=== PATIENT | male | born 1955 | race Two or more races ===

== ENCOUNTER 2024-08-21 05:20 | Emergency (ER) | payer OTHER ==
[~2024-08-21] VITALS: Ht 177.8 cm; Wt 95.3 kg
[2024-08-21 06:19] VITALS: BP 146/89; RESP 16; TEMP 98.9; O2SAT 100
[2024-08-21 06:40] VITALS: PULSE 85
--- NOTE | 2024-08-21 06:40 | ED.PDOC ---
HPI Comments A 68 YEAR OLD MALE PRESENTS TO THE ED WITH COMPLAINT OF LEFT ELBOW LACERATION STATUS POST FALL. PATIENT STATES HE HAS A HISTORY OF DIABETES AND TAKES INSULIN AND WHEN HE CHECKED HIS BLOOD SUGAR EARLIER THIS MORNING IT APPEARED TO BE IN THE 60S. PATIENT REPORTS HE FELT LIGHTHEADED WHILE HE WAS GETTING FOOD FOR HIS DOG, A RESULT OF HIS BLOOD SUGAR BEING LOW, WHICH THEN CAUSED HIM TO FALL. PATIENT REPORTS HE SUSTAINED A LACERATION ON HIS LEFT ELBOW A RESULT OF THIS FALL. BLEEDING IS CONTROLLED AT THIS TIME. PATIENT DENIES HEAD INJURY, NECK INJURY, LOC, FEVER, CHILLS, SHORTNESS OF BREATH, CHEST PAIN, ABDOMINAL PAIN, NAUSEA, VOMITING, HEADACHE, OR OTHER COMPLAINTS. NO OTHER SYMPTOMS OR MODIFYING FACTORS AT THIS TIME. PATIENT IS ALERT, ORIENTED X 4, AND HAS STEADY GAIT. Chief Complaint: Laceration Time Seen by MD: 06:12 Primary Care Provider: Dr. Nazario Reviewed Notes: Nurses Notes, Medications, Allergies Allergies: Coded Allergies: NO KNOWN ALLERGIES (Unverified , 08/21/24) Home Meds Active Scripts Cephalexin Monohydrate (Cephalexin) 500 Mg Cap, 1 CAP PO QID, #32 CAP Prov:CARLEE RICKS 08/21/24 Information Source: Patient Mode of Arrival: Ambulatory Severity: Moderate Severity of Laceration: Controlled Bleeding Complexity: Simple Timing: Hours Prehospital treatment: None Laceration Location: Other (LEFT ELBOW) Mechanism: Fall Last Tetanus: Unknown Laceration Length (cm): 6 Skin Type: Linear Depth of Injury: Skin, SQ Tendon Injury: 0% Capillary Refill: < 3 seconds Tender: Mild Discharge: None Erythema: None Associated Signs and Symptoms: None Past Medical History PAST MEDICAL HISTORY: DM, HTN Surgical History: Denies all surgeries Family History Family History: Reviewed,noncontributory to illness Social History Smoker: Non-Smoker Alcohol: Denies ETOH Use Drugs: Denies Drug Use Lives In: Home Constitutional: denies: chills, diaphoresis, fatigue, fever, malaise, sweats, weakness, others EENTM: denies: blurred vision, double vision, ear bleeding, ear discharge, ear drainage, ear pain, ear ringing, eye pain, eye redness, hearing loss, mouth pain, mouth swelling, nasal discharge, nose bleeding, nose congestion, nose pain, photophobia, tearing, throat pain, throat swelling, voice changes, others Respiratory: denies: cough, hemoptysis, orthopnea, SOB at rest, shortness of breath, SOB with excertion, stridor, wheezing, others Cardiovascular: denies: chest pain, dizzy spells, diaphoresis, Dyspnea on exertion, edema, irregular heart beat, left arm pain, lightheadedness, palpitations, PND, syncope, others Gastrointestinal: denies: abdomen distended, abdominal pain, blood streaked bowels, constipated, diarrhea, dysphagia, difficulty swallowing, hematemesis, melena, nausea, poor appetite, poor fluid intake, rectal bleeding, rectal pain, vomiting, others Genitourinary: denies: burning, dysuria, flank pain, frequency, hematuria, incontinence, penile discharge, penile sore, pain, testicle pain, testicle swelling, urgency, others Neurological: reports: dizziness; denies: fainting, headache, left sided numbness, left sided weakness, numbness, paresthesia, pre-existing deficit, right sided numbness, right sided weakness, seizure, speech problems, tingling, tremors, weakness, others Musculoskeletal: denies: back pain, gout, joint pain, joint swelling, muscle pain, muscle stiffness, neck pain, others Integumetry: reports: laceration (LACERATION OF LEFT ELBOW); denies: bruises, change in color, change in hair/nails, dryness, lesions, lumps, rash, wounds, others Allergic/Immunocompromised: denies: Difficulty Healing, Frequent Infections, Hives, Itching, others Hematologic/Lymphatic: denies: anemia, blood clots, easy bleeding, easy bruising, swollen glands, others Endocrine: denies: excessive hunger, excessive sweating, excessive thirst, excessive urination, flushing, intolerance to cold, intolerance to heat, unexplained weight gain, unexplained weight loss, others Psychiatric: denies: anxiety, bipolar disorder, depression, hopeless, panic disorder, schizophrenia, sleepless, suicidal, others All Other Systems: Reviewed and Negative Physical Exam General Appearance: No Apparent Distress, Normal HEENT: Normal ENT Inspection, PERRL/EOMI, Pharynx Normal, TMs Normal Neck: Full Range of Motion, Non-Tender, Normal, Normal Inspection Respiratory: Chest Non-Tender, Lungs Clear, No Accessory Muscle Use, No Respiratory Distress, Normal Breath Sounds Cardiovascular: No Edema, No JVD, No Murmur, No Gallop, Normal Peripheral Pulses, Regular Rate/Rhythm Breast Exam: Deferred Gastrointestinal: No Organomegaly, Non Tender, No Pulsatile Mass, Normal Bowel Sounds, Soft Genitalia: Deferred Pelvic: Deferred Rectal: Deferred Extremities: No calf tenderness, Normal capillary refill, Normal range of motion, No pedal edema, Tender (WITH LACERATION ON LEFT POSTERIOR ELBOW, NO BONY TENDERNESS, SWELLING AND DEFORMITY. NORMAL ROM. ) Musculoskeletal : Apperance: Normal Neurologic: Alert, offshoring manager II-XII nml as Tested, No Motor Deficits, Normal Affect, Normal Mood, No Sensory Deficits Cerebellar Function: Normal Reflexes: Normal Skin: Dry, Lacerations (6CM LACERATION ON LEFT POSTERIOR ELBOW, NO BLEEDING, SWELLING, NO FB, NEUROVASCULAR INTACT. ), Normal Color, Warm Peripheral Pulses: 2+ carotid (R), 2+ carotid (L), 2+ Radial (R), 2+ Radial (L) Lymphatic: No Adenopathy Was a procedure done? Was a procedure done?: Yes Sedation Sedation?: No Laceration Repair : Location LEFT ELBOW Length 6CM Anesthetic: Lidocaine, Without epi Laceration Repair Prep: Saline, by Irrigation Laceration Repair Wound Comple: epidermis/dermis repair Laceration Repair: Number of sutures (12), Skin, SQ, Size (4-0 ETHILON), Nylon, Simple, Gauze Informed consent obtained: No Risks, benefits, and alternati: Yes EKG EKG : Pulse Rate (adult): 85 [place]innett: Normal Cardiac Rhythm: NSR Block: None Hypertrophy: None ST: Normal Images 1 - Differential diagnosis Generic Laceration: Abrasion/Contusion, Laceration, Avulsion, Other (POSSIBLE NEAR SYNCOPE ) Differential Diagnosis: N/A X-Ray, Labs, Meds, VS Vital Signs Date Time Temp Pulse Resp B/P (MAP) Pulse Ox O2 Delivery O2 Flow Rate FiO2 08/21/24 06:40 85 08/21/24 06:30 85 08/21/24 06:19 95 16 100 Room Air 08/21/24 06:19 98.9 95 16 146/89 (108) 100 98.9 08/21/24 05:32 98.9 95 16 146/89 (108) 100 98.9 Lab Test 08/21/24 06:35 08/21/24 05:39 Range/Units White Blood Count 8.9 4.4-10.8 10^3/uL Red Blood Count 4.17 L 4.5-5.90 10^6/uL Hemoglobin 13.8 13.5-17.5 g/dL Hematocrit 39.2 L 41.0-53.0 % Mean Corpuscular Volume 94.0 80.0-100.0 fL Mean Corpuscular Hemoglobin 33.1 H 28.0-32.0 pg Mean Corpuscular Hemoglobin Concent 35.2 32.0-36.0 g/dL Red Cell Distribution Width 14.1 11.8-14.3 % Platelet Count 136 L 140-450 10^3/uL Mean Platelet Volume 7.7 6.9-10.8 fL Neutrophils (%) (Auto) 82.7 H 37.0-80.0 % Lymphocytes (%) (Auto) 11.0 10.0-50.0 % Monocytes (%) (Auto) 6.0 0.0-12.0 % Eosinophils (%) (Auto) 0.0 0.0-7.0 % Basophils (%) (Auto) 0.3 0.0-2.0 % Neutrophils # (Auto) 7.3 1.6-8.6 10 ^3/uL Lymphocytes # (Auto) 1.0 0.4-5.4 10 ^3/uL Monocytes # (Auto) 0.5 0-1.3 10 ^3/uL Eosinophils # (Auto) 0 0-0.8 10 ^3/uL Basophils # (Auto) 0 0-0.2 10 ^3/uL Nucleated Red Blood Cells 0.0 % Sodium Level 140 136-145 mmol/L Potassium Level 4.1 3.5-5.1 mmol/L Chloride Level 108 H 98-107 mmol/L Carbon Dioxide Level 24 20-31 mmol/L Anion Gap 8 5-15 Blood Urea Nitrogen 25 H 9-23 mg/dL Creatinine 1.23 0.700-1.30 mg/dL Glomerular Filtration Rate Calc 63 >90 mL/min BUN/Creatinine Ratio 20.3 H 10.0-20.0 Serum Glucose 148 H 74-106 mg/dL Calcium Level 10.0 8.7-10.4 mg/dL Troponin I High Sensitivity 4 </=54 ng/L POC Glucose 146 H 70-106 mg/dl X-Ray, Labs, Meds, VS Comment EXTERNAL MEDICAL RECORDS REVIEWED: [NONE] INDEPENDENT HISTORIANS: [NONE] SOCIAL DETERMINANTS OF HEALTH: [NONE] LABS ORDERED: CBC, BMP, TROPONIN REVIEWED AND INTERPRETED RESULTS: GLUC 143 IMAGING ORDERED: NONE TREATMENTS ORDERED: LACERATION REPAIR, SEE PROCEDURE SECTION. PROCEDURES PERFORMED: LACERATION REPAIR, SEE PROCEDURE SECTION. CRITICAL CARE TIME: NONE I HAVE DISCUSSED THE PATIENT WITH THE ATTENDING PHYSICIAN DR. STONER AND HE AGREES WITH THE PATIENT'S PLAN OF CARE AND DISPOSITION. BASED ON HISTORY OF PRESENT ILLNESS, AND PHYSICAL EXAM, PATIENT WILL BE DISCHARGED HOME. DISCUSSED PLAN FOR DISCHARGE HOME WITH RX [KEFLEX]. MEDICATION WARNINGS GIVEN. SHARED DECISION MAKING: PATIENT INSTRUCTED TO FOLLOW UP WITH PRIMARY CARE PROVIDER IN 1-2 DAYS FOR RE-EVALUATION OF SYMPTOMS. PATIENT VERBALIZES UNDERSTANDING TO RETURN TO ED FOR NEW OR WORSENING SYMPTOMS OR IF FOLLOW UP WITH PCP CANNOT BE OBTAINED. PATIENT FEELS COMFORTABLE GOING HOME AT THIS TIME. ALL QUESTIONS ADDRESSED AT TIME OF DISCHARGE. Images Reviewed?: Images reviewed and evaluated by me Time of 1ST Reevaluation: 07:40 Reevaluation 1ST: Improved Patient Education/Counseling: Diagnosis, Treatment, Need For Follow Up Family Education/Counseling: Diagnosis, Treatment, Need For Follow Up Medical Screening: No EMC Exist At This Time Departure 1 Departure Time of Disposition: 07:40 Impression: Primary Impression: Laceration of left elbow Qualified Codes: S51.012A - Laceration without foreign body of left elbow, initial encounter Additional Impression: Near syncope Disposition: 01 HOME / SELF CARE / HOMELESS Condition: Stable Additional Instructions: FOLLOW-UP WITH PCP IN 1 TO 2 DAYS. TAKE MEDICATIONS PRESCRIBED. RETURN TO ED FOR ANY NEW OR WORSENING SYMPTOMS. e-Prescriptions Cephalexin Monohydrate (Cephalexin) 500 Mg Cap 1 CAP PO QID, #32 CAP Prov: CARLEE RICKS 08/21/24 Discharged With: Self Critical Care Note Critical Care Time?: No Stability Stability form required: No Heart Score Heart Score: Heart Score Response (Comments) Value History N/A 0 EKG N/A 0 Age N/A 0 Risk Factors N/A 0 Troponin N/A 0 Total 0 I personally scribed for CARLEE RICKS ([email or web address]) on 08/21/24 at 06:40. Electronically submitted by Jeff Stern ([email or web address]). I personally scribed for CARLEE RICKS ([email or web address]) on 08/21/24 at 06:55. Electronically submitted by Jeff Stern ([email or web address]). I personally scribed for CARLEE RICKS ([email or web address]) on 08/21/24 at 07:33. Electronically submitted by Jeff Stern ([email or web address]). CARLEE RICKS August 21, 2024 06:40
[2024-08-21 06:48] LABS: Basophils # (auto) 0 10 ^3/uL (0-0.2); Basophils % (auto) 0.3 % (0.0-2.0); Eosinophils # (auto) 0 10 ^3/uL (0-0.8); Hematocrit 39.2 % (41.0-53.0); Hemoglobin 13.8 g/dL (13.5-17.5); Mean Corpuscular Hemoglobin 33.1 pg (28.0-32.0); Mean Corpuscular Hgb Conc. 35.2 g/dL (32.0-36.0); Monocytes # (auto) 0.5 10 ^3/uL (0-1.3); Neutrophils # (auto) 7.3 10 ^3/uL (1.6-8.6); Neutrophils % (auto) 82.7 % (37.0-80.0); Platelet Count (auto) 136 10^3/uL (140-450); Red Blood Cells 4.17 10^6/uL (4.5-5.90); Red Cell Distribution Width 14.1 % (11.8-14.3); White Blood Cell 8.9 10^3/uL (4.4-10.8)
[2024-08-21 07:08] LABS: Potassium 4.1 mmol/L (3.5-5.1); Sodium 140 mmol/L (136-145)
[2024-08-21 07:09] LABS: Anion Gap 8 (5-15); Carbon Dioxide 24 mmol/L (20-31)
[2024-08-21 07:14] LABS: BUN/Creatinine Ratio 20.3 (10.0-20.0)
[2024-08-21 07:15] LABS: Blood Urea Nitrogen 25 mg/dL (9-23); Chloride 108 mmol/L (98-107); Glucose 148 mg/dL (74-106)
[2024-08-21] MEDS ORDERED: CEPH500C PO (07:29)
[2024-08-21] MEDS: TETANUS-DIPTH-ACEL PERTUSSIS 0.5ML SYR Tdap IM ONE (08:03)
--- NOTE | 2024-08-25 06:34 | ECG ---
[facility] Test Date: 2024-08-21 Test Time: 06:30:57 Pat Name: CAMRYN MAJOR Department: ed Room: Gender: M Customer Account Executive: juan f : 1955 Requested By: CARLEE RICKS Order Number: [id number] Reading MD: Measurements Intervals [place] Rate: 85 P: 61 UT: 227 QRS: 23 QRSD: 78 T: 28 QT: 388 QTc: 462 Interpretive Statements Sinus rhythm Prolonged UT interval Probable left atrial enlargement Please click the below link to view image of tracing.
== END 2024-08-21 08:04 | disposition home or self-care (01) ==
LOC: ER 05:20
DX: S51.012A Laceration without foreign body of left elbow, initial encounter (principal); R55 Syncope and collapse; E11.9 Type 2 diabetes mellitus without complications; I10 Essential (primary) hypertension; X58.XXXA Exposure to other specified factors, initial encounter; Y93.89 Activity, other specified; Y92.89 Other specified places as the place of occurrence of the external cause; Y99.8 Other external cause status
CPT/HCPCS: 12002; 36415; 80048; 82947; 82962; 84484; 85025; 90471; 90715; 93005

== ENCOUNTER 2025-03-02 07:50 | Inpatient (IN) | payer OTHER ==
[~2025-03-02] VITALS: Ht 177.8 cm; Wt 90.0 kg
[~2025-03-02 07:50] MED LIST: AML5T GT; ATOR10TA52 PO; BISO1TAB17 PO; CYCL-838 PO; HYDR-4072 PO; INSLANTI SC; INSUINJ2 SC; VALS40TA2 PO
[2025-03-02] MEDS ORDERED: LIDOCAINE 1% INJ PF 5ML AMP ONE (07:54)
[2025-03-02] MEDS ORDERED: KETOROLAC TROMETH 30 MG/ML 1ML VIAL ONE (07:54)
[2025-03-02] MEDS ORDERED: ONDANSETRON HCL 4 MG/2 ML VIAL ONE (07:54)
[2025-03-02] MEDS ORDERED: PROPOFOL 10 MG/ML 20 ML IV ONE ×3 (07:54→10:47)
[2025-03-02] MEDS ORDERED: BUPIVACAINE/DEXTROSE MPF 0.75% 2 ML AMP IT ONE (07:54)
[2025-03-02] MEDS ORDERED: GLYCOPYRROLATE 0.2 MG/ML 1ML VIAL ONE (07:54)
[2025-03-02] MEDS ORDERED: KETAMINE 50mg/ML 1ml syringe ONE (07:57)
[2025-03-02] MEDS: GABAPENTIN 300 MG CAP PO ONE (08:59)
[2025-03-02] MEDS: ACETAMINOPHEN IV 1000 MG/100ML (10MG/ML) IV ONE (08:59)
[2025-03-02] MEDS: CELECOXIB 100 MG CAP PO ONE (08:59)
[2025-03-02] MEDS ORDERED: SODIUM CHLORIDE LOCK 10 ML ONE ×2 (09:15→09:16)
[2025-03-02] MEDS ORDERED: PHENYLEPHRINE HCL 10 MG/ML VL ONE (09:15)
[2025-03-02] MEDS: VANCOMYCIN HCL 1000 MG VL ONE (10:29)
--- NOTE | 2025-03-02 11:03 | DVHOP2 ---
Operative Report - 2 Report Details Date: 03/02/25 Preop Diagnosis: Left knee degenerative arthritis Postop Diagnosis: Left knee degenerative arthritis Surgeon: Peewee Hernández MD Historical Society Director: Rishi QUEEN Anesthesiologist: Michel Anesthesia: Regional Drains: Nba closed wound suction Implant: DonJoy size nine femur PS, size eight tibial base plate, size 11 poly Consent: The patient was informed of the risks and benefits of the procedure. These include but are not limited to complications of anesthesia, postoperative infection, incomplete relief of symptoms, recurrence of symptoms, damage to blood vessels, nerves and tendons, deep venous thrombosis, pulmonary embolism and possible need for repeat surgery in the future. Complications: None Estimated Blood Loss: 75 cc Fluids: See anesthesia record Findings: Varus deformity, osteophytes, denuded cartilage with eburnated bone Indications for Surgery: Left knee degenerative arthritis with severe pain and functional impairment despite nonoperative management Name of Procedure Performed Left total knee arthroplasty Procedure Details Procedure Details: The patient was brought to the operating room and placed on the table in the supine position after being given spinal anesthetic with adequate analgesia obtained. Surgical timeout was performed verifying patient, laterality and procedure Preop patient received IV cefepime IV Ancef and IV tranexamic acid. Tourniquet was applied to the lower extremity. Lower extremity was prepped and draped in sterile fashion. Extremity was elevated, exsanguinated Esmarch, and tourniquet inflated. Midline incision was made followed by medial arthrotomy. I exposed the anterior medial and lateral tibial plateau and the anterior distal femur. Bovie and aqua mantis were used for hemostasis. I excised the anterior meniscal tissue with Bovie. I excised a portion of the fat pad with Bovie. The patella was everted and the knee flexed. I drilled the distal femur and suctioned the hole to reduce the risk of fat emboli. I inserted intramedullary guide with 5 degree valgus setting. I pinned the distal femoral cutting block anteriorly. Intramedullary harmony was removed. Distal femoral cut was made and the block removed. I brought my attention to the tibia setting up the external cutting jig for the tibia paying attention to slope, rotation and varus valgus alignment. I set the depth and pinned the block. I used the external alignment harmony to aid in checking alignment. Bone cut was made and bone removed releasing soft tissue attachments with Bovie. Cutting block removed. I then checked the extension gap and deemed adequate and removed the femur and tibia pins. I flexed the knee and applied the femoral sizing guide to the femur. I checked the size and external rotation setting at 90 degrees to Whitesides line and checking the epicondylar axis. I drilled the holes then removed the sizing guide and pin. I then tapped on the 4 in 1 cutting block and checked with the francisco wing anteriorly to make sure that I would not notch then pinned the block. Cuts were made and the block and pins were removed. Bone was removed with curved osteotome. I used a rongeur to remove any remaining osteophytes at the femur and tibia. I then used a lamina educational assistant teacher to open up the back alternating between the medial and lateral side. Any remaining meniscal tissue was excised with scalpel. I used curved osteotome, curette and rongeur to remove any posterior osteophytes. I prophylactically coagulated with aqua mantis. I then tapped on the template for the box cut and pinned it. Box cut was made and bone removed. Template and pin removed. I then tapped on the femoral trial. I then brought my attention back to the tibia sizing it. I used the external alignment harmony to make sure that rotation and alignment were good. I made a Bovie shereen at the tibial tray shereen identifying rotation for later use. I tried various tibial polytrials. The patella tracked nicely without thumb pressure. I removed the trials. I pinned the tray and used the reamer and keel punch. The implants were brought into the field while bone preparation was started. I used both normal saline irrigation and the CarboJet to prepare the bone. I used the bone from the cuts to graft the femoral tunnel. Once cement was ready I applied cement to the tibial implant and tibial bone tapped it on and removed excess cement in usual fashion. In similar fashion I tapped on the femoral implant. I inserted the trial polyethylene and brought the knee into 30 degrees flexion. I irrigated with bactisurge irrigant. Once cement cured, I checked stability and range of motion as well as patella tracking. tourniquet was released and hemostasis maintained with aqua mantis. I inserted the polyethylene and again checked stability. I used a 2 grams of vancomycin half of which was placed deep and half superficial. I repaired the e xtensor mechanism with the knee in flexion with #1 Ethibond interrupted [id number]. Deep subcutaneous tissue was closed with 0 Vicryl. Superficial subcutaneous tissue was closed with 2-0 vicryl interrupted. Skin was closed with christi. I then applied the [nba closed wound suction]. Patient tolerated the procedure well and was brought to recovery room in stable condition. Condition Stable Disposition Still a Patient PEEWEE HERNÁNDEZ MD Mar 02, 2025 11:03
[2025-03-02 11:13] VITALS: PULSE 80; RESP 14; O2SAT 99
[2025-03-02] MEDS ORDERED: ACETAMINOPHEN 325 MG TAB PO PRN (11:15)
[2025-03-02] MEDS ORDERED: DEXTROSE (50%) 50ML SYRG IV PRN (11:15)
[2025-03-02] MEDS: InsuLIN REG 1unit/0.01ml Soln (100units/ml) SC SCH ×2 (11:19→22:28)
[2025-03-02] MEDS ORDERED: hydrALAZINE HCL 20 MG/ML VL IV PRN (11:30)
[2025-03-02] MEDS ORDERED: NALOXONE HCL 0.4 MG/ML VIAL IV PRN (11:30)
[2025-03-02] MEDS: ACCU-CHEK COMFORT CURVE STRIP VI SCH (11:30)
[2025-03-02] MEDS ORDERED: ONDANSETRON HCL 4 MG/2 ML VIAL IV PRN (11:30)
[2025-03-02] MEDS ORDERED: fentaNYL CITRATE 100 MCG/2 ML VL IV PRN (11:30)
[2025-03-02] MEDS ORDERED: FLUMAZENIL 0.1 MG/ML INJ 10ML MDV IV PRN (11:30)
--- NOTE | 2025-03-02 12:00 | DVH ---
EXAM: XY L KNEE 3V XRAY CLINICAL INDICATION: postop TECHNIQUE: XY L KNEE 3V XRAY Comparison: None FINDINGS/IMPRESSION: There is no evidence of acute fracture or dislocation. Left total knee arthroplasty
[2025-03-02] MEDS: HYDROmorphone HCL 2 MG/ML VL/or syr IV PRN (12:49)
[2025-03-02] MEDS: BUPIVACAINE HCL 50 ML ONE (13:26)
[2025-03-02] MEDS: ceFAZolin 2 GM/D5W50ml 50 ML IV ONE (13:26)
[2025-03-02] MEDS: BUPIVACAINE 0.25% INJ 50ML VIAL ONE (13:26)
[2025-03-02] MEDS: TRANEXAMIC ACID 20 ML ONE (13:26)
[2025-03-02] MEDS: GABAPENTIN 300 MG CAP ONE (13:27)
[2025-03-02] MEDS: CELECOXIB 100 MG CAP ONE (13:27)
[2025-03-02] MEDS: ACETAMINOPHEN IV 100 ML IV ONE (13:28)
[2025-03-02] MEDS: CEFEPIME 1GM/50ML 50 ML IV ONE (13:28)
[2025-03-02] MEDS: ACETAMINOPHEN 325 MG TAB PO SCH (13:39)
[2025-03-02] MEDS: InsuLIN REG 1unit/0.01ml Soln (100units/ml) SC ONE (15:20)
[2025-03-02] MEDS: ceFAZolin 2 GM/D5W50ml 50 ML IV SCH ×2 (15:44→22:36)
[2025-03-02 16:31] VITALS: BP 135/98; PULSE 88; RESP 18; TEMP 97.9; O2SAT 96
[2025-03-02 17:00] VITALS: BP 124/76; PULSE 95; RESP 18; TEMP 98.4; O2SAT 96
[2025-03-02] MEDS: SODIUM CHLORIDE 0.9% 1,000 ML IV SCH (17:00)
[2025-03-02 20:00] VITALS: RESP 18; O2SAT 95
[2025-03-02 21:00] VITALS: BP 143/81; PULSE 97; RESP 17; TEMP 98.1; O2SAT 96
[2025-03-02] MEDS: PREGABALIN 25 MG CAP PO SCH (22:35)
[2025-03-03] VITALS (7 sets, daily range): BP systolic 150–160; BP diastolic 82–88; PULSE 93–96; RESP 17–21; TEMP 98.1–98.4; O2SAT 95–97
[2025-03-03 05:56] LABS: Hematocrit 38.4 % (41.0-53.0); Hemoglobin 13.5 g/dL (13.5-17.5); Mean Corpuscular Hemoglobin 33.3 pg (28.0-32.0); Mean Corpuscular Volume 94.9 fL (80.0-100.0); Nucleated Red Blood Cells % 0.0 %
[2025-03-03 06:00] LABS: Anion Gap 14 (5-15); Calcium 8.8 mg/dL (8.7-10.4); Chloride 103 mmol/L (98-107); Potassium 4.5 mmol/L (3.5-5.1)
[2025-03-03 06:02] LABS: Carbon Dioxide 19 mmol/L (20-31); Sodium 136 mmol/L (136-145)
[2025-03-03 06:07] LABS: BUN/Creatinine Ratio 17.7 (10.0-20.0)
[2025-03-03 06:10] LABS: Blood Urea Nitrogen 26 mg/dL (9-23); Glucose 248 mg/dL (74-106)
--- NOTE | 2025-03-03 15:27 | DVHDS2 ---
Discharge Summary Date of Admission Mar 02, 2025 at 11:11 Date of Discharge: Mar 03, 2025 Labs/Diagnostic Data: Laboratory Results Test 03/03/25 11:43 03/03/25 04:57 POC Glucose 287 mg/dl (70-106) White Blood Count 16.1 10^3/uL (4.4-10.8) Red Blood Count 4.05 10^6/uL (4.5-5.90) Hemoglobin 13.5 g/dL (13.5-17.5) Hematocrit 38.4 % (41.0-53.0) Mean Corpuscular Volume 94.9 fL (80.0-100.0) Mean Corpuscular Hemoglobin 33.3 pg (28.0-32.0) Mean Corpuscular Hemoglobin Concent 35.1 g/dL (32.0-36.0) Red Cell Distribution Width 13.6 % (11.8-14.3) Platelet Count 159 10^3/uL (140-450) Mean Platelet Volume 8.0 fL (6.9-10.8) Neutrophils (%) (Auto) 93.5 % (37.0-80.0) Lymphocytes (%) (Auto) 3.7 % (10.0-50.0) Monocytes (%) (Auto) 2.7 % (0.0-12.0) Eosinophils (%) (Auto) 0.0 % (0.0-7.0) Basophils (%) (Auto) 0.1 % (0.0-2.0) Neutrophils # (Auto) 15.0 10 ^3/uL (1.6-8.6) Lymphocytes # (Auto) 0.6 10 ^3/uL (0.4-5.4) Monocytes # (Auto) 0.4 10 ^3/uL (0-1.3) Eosinophils # (Auto) 0 10 ^3/uL (0-0.8) Basophils # (Auto) 0 10 ^3/uL (0-0.2) Nucleated Red Blood Cells 0.0 % Sodium Level 136 mmol/L (136-145) Potassium Level 4.5 mmol/L (3.5-5.1) Chloride Level 103 mmol/L (98-107) Carbon Dioxide Level 19 mmol/L (20-31) Anion Gap 14 (5-15) Blood Urea Nitrogen 26 mg/dL (9-23) Creatinine 1.47 mg/dL (0.700-1.30) Glomerular Filtration Rate Calc 51 mL/min (>90) BUN/Creatinine Ratio 17.7 (10.0-20.0) Serum Glucose 248 mg/dL (74-106) Calcium Level 8.8 mg/dL (8.7-10.4) Other Laboratory Tests 03/03/25 04:57 Brief Hx & Hospital Course: Patient was brought to the hospital yesterday to undergo a total knee arthroplasty. He tolerated the procedure well without complications and was kept overnight for postoperative evaluation. Patient has remained medically stable denying any other complaints or concerns during my evaluation and reports that he was able to get up and walk with the help of physical therapy and his walker and was able to get down the malin around the nurses station and back to his room with minimal pain. Patient was otherwise feeling well denying any other complaints or concerns during my evaluation and was ready to go home. Condition at Discharge: Stable Final Diagnosis/Problems List Left knee degenerative arthritis Discharge Disposition: Home Discharge Instruct/Medications Diet: Regular Activity: See Comment Activity comment: Patient to be WBAT with the assistance of a walker. Follow Up/Referral: patient to follow up with our office in 10-14 days for his first postoperative evaluation. Medications: Rx sent via out patient EMR system. Scheduled Atorvastatin Calcium (Atorvastatin Calcium), Unknown Dose PO DAILY, (Reported) Miscellaneous Medications Amlodipine Besylate (Norvasc Tablet), Unknown Dose GT, (Reported) Bisoprolol & Hydrochlorothiazi (Bisoprolol Fumarate/Vina), Unknown Dose PO, (Reported) Cyclobenzaprine Hcl (Cyclobenzaprine Hcl), Unknown Dose PO, (Reported) Hydrocodone-Acetaminophen (Hydrocodone/Acetaminophen 10-325 mg), Unknown Dose PO, (Reported) Insulin Glargine (Lantus), Unknown Dose SC, (Reported) Insulin NPH (Human) (Isophane) (Humulin N), Unknown Dose SC, (Reported) Valsartan (Diovan), Unknown Dose PO, (Reported) Discharge Statement: "Patient was advised to return to the ER or call 911 if any headaches, dizziness, shortness of breath, chest pain, abdominal pain, bleeding, fevers, or worsening of medical condition. Patient was counseled about treatment plan, medications, possible side effects, patientverbalized understanding. All questions were answered to the best of my ability. This discharge took greater then 30 minutes in planning, reviewing documentation, counseling the patient, and discussing with other team members." ASSESSMENT ASSESSMENT Assessment Left knee degenerative arthritis ELPIDIO LOWE Mar 03, 2025 15:27
--- NOTE | 2025-03-03 15:29 | DVHPN2 ---
Progress Note - Dictate Date Seen: Mar 03, 2025 Medical Necessity Reason Pt with a Central, PICC or Fol: No Subjective Patient was lying comfortably in bed during my evaluation reports some postoperative knee pain that is being well managed with the help of pain medication. Patient reports that he was able to get up and walk with the help of physical therapy and his walker and was able to get down the malin around the nurses station and back to his room with some postoperative knee pain that was managed well. Patient was otherwise feeling well denying any other complaints or concerns during my evaluation and was ready to go home. vital signs Vital Sign Date Time Temp Pulse Resp B/P (MAP) Pulse Ox O2 Delivery O2 Flow Rate FiO2 03/03/25 12:43 98.1 94 18 155/83 (107) 97 98.1 03/03/25 08:00 Room Air* 0 21 Total Intake and Output 03/02/25 03/02/25 03/03/25 15:00 23:00 07:00 Intake Total 100 ml 800 ml 840 ml Output Total 351 ml 1660 ml Balance 100 ml 449 ml -820 ml medications Current Medications Medications Dose Ordered Sig/Manju Route Start Time Stop Time Status Last Admin Dose Admin Amlodipine Besylate 5 mg DAILY GT 03/03/25 10:00 03/03/25 09:20 5 MG Diagnostic Test (Pha) 1 strip ACHS 03/02/25 11:30 03/03/25 11:30 1 STRIP Insulin Human Regular HS SC 03/02/25 22:00 03/02/25 22:28 6 UNITS Insulin Human Regular AC SC 03/02/25 11:30 03/03/25 12:37 9 UNITS Dextrose 50 ml UD PRN IV 03/02/25 11:15 Sodium Chloride 1,000 ml @ 125 mls/hr Q8H IV 03/02/25 11:15 03/03/25 09:21 125 MLS/HR Acetaminophen 650 mg Q4HP PRN PO 03/02/25 11:15 Acetaminophen 650 mg Q6HR PO 03/02/25 12:00 03/03/25 12:36 650 MG Pregabalin 50 mg BID PO 03/02/25 22:00 03/03/25 09:21 50 MG Oxycodone HCl 5 mg Q4HP PRN PO 03/02/25 11:15 03/03/25 05:00 5 MG Oxycodone HCl 10 mg Q4HP PRN PO 03/02/25 12:12 03/03/25 09:20 10 MG Aspirin 81 mg BID PO 03/03/25 10:00 03/03/25 09:20 81 MG Oxycodone HCl 10 mg ONCE PRN PO 03/02/25 11:30 Hold objective A&O x4 in no acute distress Knee range of motion grossly limited with pain on movement Marisela dressing clean, dry, intact, and maintaining suction No distal edema or calf tenderness to palpation Neurovascularly intact with cap refill less than 2 seconds laboratory and microbiology Laboratory Tests 03/03/25 04:57 Test 03/03/25 04:57 Range/Units Serum Glucose 248 H 74-106 mg/dL Assessment/Plan Patient to be discharged home and advised to remain weight-bearing as tolerated with the assistance of his walker. I also recommended with the patient maintain his dressings clean, dry, intact, and maintaining suction and to call our office if he has any remaining questions or concerns. I instructed the patient to follow up with our office in 10-14 days for his 1st postoperative evaluation. Rx sent via our outpatient EMR system. Patient understood and agreed. Plan discussed with: Patient ELPIDIO LOWE Mar 03, 2025 15:29
== END 2025-03-03 17:55 | disposition home or self-care (01) | DRG 470 ==
LOC: SUR 07:50 → OVERFLOW 11:11 → EAST 16:20
PROVIDERS: ADMIT Orthopaedic Surgery; ATTEND Orthopaedic Surgery
PROC: 0SRD0J9 Replacement of Left Knee Joint with Synthetic Substitute, Cemented, Open Approach (ICD-10-PCS; principal; 2025-03-02 09:03)
DX: M17.12 Unilateral primary osteoarthritis, left knee (principal); M21.162 Varus deformity, not elsewhere classified, left knee; M25.762 Osteophyte, left knee; Z79.899 Other long term (current) drug therapy
CPT/HCPCS: 36415; 73562; 80048; 82962; 85025; 86850; 86900; 86901; 97116; 97163; 97530; G0378; J0131; J0169; J1100; J1815; J1885; J2405; J2704; J3490